=== PATIENT | female | born 1985 | race Caucasian/White ===

== ENCOUNTER 2018-06-09 20:34 | Emergency (ER) | payer MEDICAID ==
--- NOTE | 2018-06-09 21:41 | Emergency Department Record ---
History of Present Illness - General Chief complaint: Abscess Stated complaint: INFECTED CYST Time Seen by Provider: 06/09/18 21:28 Source: Patient Mode of Arrival: Ambulatory Limitations: No limitations - History of Present Illness Initial comments: 33 yo female presents with a draining abscess on her right sided chest. She had a tender spot for about 2 months. The area increased in size in the last week. It was I and D's at [facility] and packed. She was on Keflex. It improved. The packing was removed. The area began draining pus again tonight. She has discussed this with her doctor. She is being referred to a surgeon. We discussed this is a necessity to ensure this originally was not a sign of breath cancer being close to the right breast. She understands and plans on seeing the surgeon. MD complaint: Abscess/boil Onset/Timin -: Days(s) Hx Tetanus Toxoid Vaccination: Yes Year of Tetanus Vaccination: 2016 Patient Tetanus UTD (within 5 yrs): Yes Severity: Mild Severity scale (1-10): 2 Quality: Aching Consistency: Constant Improves with: None Worsens with: Other Associated symptoms: Denies other symptoms Treatments Prior to Arrival: Antibiotic - Related Data Home Medications Medication Instructions Recorded Confirmed Last Taken Cephalexin [Keflex] 500 mg PO BID 06/09/18 06/09/18 06/09/18 Previous Rx's Medication Instructions Recorded Acetaminop W/ Codeine 300/30Mg 1 tab PO Q6H #12 tab 06/09/18 [Tylenol #3] Sulfamethoxazole/Trimethoprim 1 each PO BID #14 tablet 06/09/18 [Bactrim Ds Tablet] Allergies Allergy/AdvReac Type Severity Reaction Status Date / Time acetaminophen [From Vicodin] AdvReac NAUSEA Verified 04/13/18 20:15 hydrocodone bitartrate AdvReac NAUSEA Verified 04/13/18 20:15 [From Vicodin] Travel Screening - Travel/Exposure Within Last 30 Days Have you traveled within the last 30 days?: No - Travel Symptoms Symptom Screening: None Review of Systems Constitutional: Denies: Chills, Fever, Malaise, Weakness Eyes: Denies: Eye discharge ENT: Denies: Congestion, Throat pain Respiratory: Denies: Cough, Dyspnea, Hemoptysis, Stridor, Wheezes Cardiovascular: Denies: Chest pain, Palpitations, Syncope Endocrine: Denies: Fatigue, Polydipsia, Polyuria Gastrointestinal: Denies: Abdominal pain, Diarrhea, Nausea, Vomiting Genitourinary: Denies: Dysuria, Urgency Musculoskeletal: Denies: Arthralgia, Back pain, Myalgia Skin: Reports: Change in color, Lesions Neurological: Denies: Headache Psychiatric: Denies: Anxiety Hematological/Lymphatic: Denies: Blood Clots, Easy bleeding, Easy bruising, Swollen glands Past Medical History - SOCIAL HISTORY Smoking Status: Current every day smoker Alcohol Use: Occasional Drug Use: Heavy Drug Use Detail:: Marijuana - RESPIRATORY Hx Respiratory Disorders: No - CARDIOVASCULAR Hx Cardio Disorders: Yes Hx Irregular Heartbeat: Yes (possible murmur) - NEURO Hx Neuro Disorders: No - GI Hx GI Disorders: Yes Hx Reflux: Yes - Hx Genitourinary Disorders: No - ENDOCRINE Hx Endocrine Disorders: No - MUSCULOSKELETAL Hx Musculoskeletal Disorders: No - PSYCH Hx Psych Problems: Yes Hx Anxiety: Yes - HEMATOLOGY/ONCOLOGY Hx Hematology/Oncology Disorders: No Family Medical History Any Significant Family History?: No Family Hx Comment (NOT TO BE USED IN PLACE OF ITEMS BELOW): DENIES Physical Exam - General General Appearance: Alert, Oriented x3, Cooperative, No acute distress Limitations: No limitations - Head Head exam: Atraumatic - Eye Eye exam: Normal appearance - ENT ENT exam: Normal exam Ear exam: Normal external inspection Nasal Exam: Normal inspection Mouth exam: Normal external inspection - Neck Neck exam: Normal inspection - Respiratory Respiratory exam: Normal lung sounds bilaterally. negative: Chest wall tenderness, Respiratory distress - Cardiovascular Cardiovascular Exam: Regular rate, Normal rhythm, Normal heart sounds - Rectal Rectal exam: Deferred - exam: Deferred - Extremities Extremities exam: Normal inspection - Neurological Neurological exam: Alert, Oriented X3 - Psychiatric Psychiatric exam: Normal affect, Normal mood - Skin Type of lesion: Abscess (mid upper right chest) Course Vital Signs 06/09/18 21:03 Temperature 98.4 F Pulse Rate [ 72 Pulse Ox Probe] Respiratory 18 Rate Blood Pressure 139/95 [Left Arm] Pulse Ox 100 - Reevaluation(s) Reevaluation #1: 06/09/18 21:40 The area is draining pus I recommend opening and placing the packing back in the abscess She is on Keflex Additional antibiotics will be offered until her culture return Procedure I and D Right chest wall abscess Betadine Prep Lidocaine 1% local The wound was opened Cheesy firm material expressed Mild pus The pocket was irrigated Packing placed. 06/09/18 21:57 We discussed again at length that she needs to follow through with her doctor to have a full breast evaluation and see a breast specialist to rule out any chance this could be cancer related. Disposition Disposition: Discharge Clinical Impression: Cellulitis, Abscess Disposition: Home, Self-Care Condition: (1) Good Instructions: Abscess Incision and Drainage (ED) Additional Instructions: Call your doctor for a recheck in 2 days Return on to have the packing reviewed and possibly removed Call your doctor to confirm you will be seeing a surgeon for the cyst to ensure it is not related to the breast or a cancer of the breast Prescriptions: Acetaminop W/ Codeine 300/30Mg [Tylenol #3] 1 tab PO Q6H #12 tab Sulfamethoxazole/Trimethoprim [Bactrim Ds Tablet] 1 each PO BID #14 tablet Forms: Patient Portal Access Time of Disposition: 22:01 Quality - Quality Measures Quality Measures: N/A - Blood Pressure Screening Does Patient Have Any of the Following: No Blood Pressure Classification: Hypertensive Reading Systolic Measurement: 143 Diastolic Measurement: 99 Screening for High Blood Pressure: < Pre-Hypertensive BP, F/U Documented > [ G8950] Pre-Hypertensive Follow-up Interventions: Referral to alternative/primary care provider.
[2018-06-09] MEDS: CLINDAMYCIN 150 MG CAP PO ONE (22:05)
[2018-06-09] MEDS: ACETAMINOPHEN W/ CODEINE 300MG/30MG TABLET PO ONE ×2 (22:06→22:42)
[2018-06-09] MEDS: TMP/SMZ 160MG/800MG TAB PO ONE (22:06)
== END 2018-06-09 22:43 | disposition home or self-care (01) ==
LOC: ER 20:34
DX: L02.213 Cutaneous abscess of chest wall (principal); F17.210 Nicotine dependence, cigarettes, uncomplicated
CPT/HCPCS: 10060; 99284

== ENCOUNTER 2018-06-15 09:52 | Emergency (ER) | payer MEDICAID ==
--- NOTE | 2018-06-15 10:10 | Emergency Department Record ---
History of Present Illness - General Chief Complaint: Wound, check Stated Complaint: RECHECK Time Seen by Provider: 06/15/18 09:53 Source: Patient Mode of arrival: Ambulatory Limitations: No limitations - History of Present Illness Initial Comments: The patient is here for a recheck of a chest wound abscess. She is doing much better. Complaint: Wound re-check Onset/Timin -: Days(s) Initial Visit For: Abscess Returns Today for: Wound recheck Symptoms Since Prior Visit: No new symptoms Associated Symptoms: None - Related Data Previous Rx's Medication Instructions Recorded Acetaminop W/ Codeine 300/30Mg 1 tab PO Q6H #12 tab 06/09/18 [Tylenol #3] Sulfamethoxazole/Trimethoprim 1 each PO BID #14 tablet 06/09/18 [Bactrim Ds Tablet] Allergies Allergy/AdvReac Type Severity Reaction Status Date / Time hydrocodone bitartrate AdvReac NAUSEA Verified 06/15/18 10:02 [From Vicodin] Travel Screening - Travel/Exposure Within Last 30 Days Have you traveled within the last 30 days?: No - Travel/Exposure Within Last Year Have you traveled outside the [place] in the last year?: No - Additonal Travel Details Have you been exposed to anyone with a communicable illness?: No - Travel Symptoms Symptom Screening: None Past Medical History - SOCIAL HISTORY Smoking Status: Current every day smoker - RESPIRATORY Hx Respiratory Disorders: No - CARDIOVASCULAR Hx Cardio Disorders: Yes Hx Irregular Heartbeat: Yes (possible murmur) - NEURO Hx Neuro Disorders: No - GI Hx GI Disorders: Yes Hx Reflux: Yes - Hx Genitourinary Disorders: No - ENDOCRINE Hx Endocrine Disorders: No - MUSCULOSKELETAL Hx Musculoskeletal Disorders: No - PSYCH Hx Psych Problems: Yes Hx Anxiety: Yes - HEMATOLOGY/ONCOLOGY Hx Hematology/Oncology Disorders: No Family Medical History Any Significant Family History?: Yes Family Hx Comment (NOT TO BE USED IN PLACE OF ITEMS BELOW): DENIES Physical Exam - General General Appearance: Alert, Oriented x3, Cooperative, No acute distress - Extremities Extremities exam: Normal inspection - Skin Type of lesion: Abscess (The chest abscess is extremely small and clearly does not need to be re-packed. It measures 8x8 mm in size and is very superficial. There is no surrounding erythema.) Course Vital Signs 06/15/18 09:54 Temperature 97.6 F Pulse Rate 77 Respiratory 16 Rate Blood Pressure 136/94 Pulse Ox 100 - Reevaluation(s) Reevaluation #1: I did explain to the patient that the wound appears to be healing well. She is to continue her present treatment plan. 06/15/18 10:12 Disposition Disposition: Discharge Clinical Impression: Abscess Disposition: Home, Self-Care Condition: (2) Stable Instructions: Wound Infection (ED) Additional Instructions: Please continue your present treatment plan and see your Surgeon as directed. Referrals: Serge Riggins [DOCTOR OF OSTEOPATH] - Forms: Patient Portal Access Time of Disposition: 10:10 Quality - Quality Measures Quality Measures: N/A - Blood Pressure Screening View Details: Yes Does Patient Have Any of the Following: No Blood Pressure Classification: Hypertensive Reading Systolic Measurement: 136 Diastolic Measurement: 94 Screening for High Blood Pressure: < First Hypertensive BP, F/U Documented > [ G8950] First Hypertensive Follow-up Interventions: Referral to alternative/primary care provider.
== END 2018-06-15 10:20 | disposition home or self-care (01) ==
LOC: ER 09:52
DX: Z48.00 Encounter for change or removal of nonsurgical wound dressing (principal); L02.213 Cutaneous abscess of chest wall; F17.210 Nicotine dependence, cigarettes, uncomplicated
CPT/HCPCS: 99282

== ENCOUNTER 2019-07-07 21:10 | Emergency (ER) | payer SELFPAY ==
[2019-07-07] MEDS ORDERED: IBUPROFEN 600 MG TABLET PO ONE (21:32)
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
== END 2019-07-07 22:33 | disposition home or self-care (01) ==
LOC: ER 21:10
DX: G89.11 Acute pain due to trauma (principal); M54.2 Cervicalgia; R51 Headache; M25.512 Pain in left shoulder; I10 Essential (primary) hypertension; V43.52XA Car driver injured in collision with other type car in traffic accident, initial encounter; F17.210 Nicotine dependence, cigarettes, uncomplicated
CPT/HCPCS: 70450; 72125; 99284